=== PATIENT | female | born 1990 | race Caucasian/White ===

== ENCOUNTER 2022-07-26 10:52 | Emergency (ER) | payer OTHER, SELFPAY ==
[2022-07-26 11:22] VITALS: BP 116/77; PULSE 66; RESP 18; TEMP 36.2; O2SAT 98; BMI 27.1
--- NOTE | 2022-07-26 14:12 | ED.GENADULT ---
HPI - General Adult General Chief complaint: Head Injury/Pain Stated complaint: Hit head last night, dizzy Source: patient Mode of arrival: ambulatory Limitations: no limitations History of Present Illness HPI narrative: 32-year-old female coming in today complaining of a headache after hitting her head against the wall at home yesterday. Headache is located all over the left temporal region where she hit her head. She states that she was leaning down picking up baby toys when she went to stand up again she was unaware of where she was relationship to the wall and hit her head against the wall. She did not lose consciousness. She has had no nausea or vomiting. She felt a little foggy this morning continues to have a headache that is localized to the left oriental orthodox where her head was hit but no generalized headache. She denies any neurologic deficits. She denies any slurred speech. She remembers everything before during and after the accident. She is not on any blood thinners. Related Data Home Medications Medication Instructions Recorded Confirmed No Known Home Medications 07/26/22 07/26/22 Allergies Allergy/AdvReac Type Severity Reaction Status Date / Time No Known Drug Allergies Allergy Verified 07/26/22 09:15 Review of Systems Status of ROS: Reports: 10 or more systems reviewed and unremarkable except as noted in History and below [facility] Social History Smoking Status: Never smoker Exam Narrative: Exam Narrative: Well-nourished well-developed patient in no acute distress. Alert and oriented x3. Answers questions appropriately. Mood and affect are appropriate. Thoughts are goal oriented and rational. No tangential or magical thinking noted. Patient speaks in full sentences without needing to catch their breath. Speech is not slurred or pressured. HEENT: Normocephalic atraumatic. Pupils are equally round reactive to light. Extraocular muscles are intact. Conjunctivae are moist without any icterus noted. Moist mucous membranes. Posterior pharynx is normal. Neck is soft without any lymphadenopathy or thyromegaly. No masses are appreciated. TMs are clear bilaterally. There is no swelling, ecchymosis, erythema noted to the area where she hit her head. Cardiovascular: Heart is regular rate and rhythm S1 and S2 are present without any murmurs. Lungs: Clear to auscultation bilaterally no wheezes rhonchi or rales are appreciated. Patient takes deep breaths without any discomfort. Strength is 5/5 of the upper and lower extremities. Reflexes are 2+ and symmetric at the knees. Romberg sign is negative. Cranial nerves 3-12 are normal. There is no nystagmus either horizontally or vertically. Gait is normal. Const: Vital Signs, click to edit/add: Vital Signs - 24 hr 07/26/22 11:22 Temperature 97.2 F L Pulse Rate [Right Brachial] 66 Respiratory Rate 18 Blood Pressure [Ri ght Upper Arm] 116/77 Pulse Oximetry 98 Oxygen Delivery Me thod Room Air Course Vital Signs Vital signs: Initial Vital Signs Temperature 97.2 F L 07/26/22 11:22 Temperature Source Temporal Artery Scan 07/26/22 11:22 Pulse Rate 66 07/26/22 11:22 Respiratory Rate 18 07/26/22 11:22 Blood Pressure 116/77 07/26/22 11:22 Blood Pressure Mean 90 07/26/22 11:22 Blood Pressure Position Sitting 07/26/22 11:22 Pulse Oximetry 98 07/26/22 11:22 Oxygen Delivery Method 07/26/22 11:22 Vital Signs Temperature 97.2 F L 07/26/22 11:22 Pulse Rate 66 07/26/22 11:22 Respiratory Rate 18 07/26/22 11:22 Blood Pressure 116/77 07/26/22 11:22 Pulse Oximetry 98 07/26/22 11:22 Oxygen Delivery Method 07/26/22 11:22 Temperature 97.2 F L 07/26/22 11:22 Pulse Rate 66 07/26/22 11:22 Respiratory Rate 18 07/26/22 11:22 Blood Pressure 116/77 07/26/22 11:22 Pulse Oximetry 98 07/26/22 11:22 Oxygen Delivery Method 07/26/22 11:22 Medical Decision Making MDM Narrative Medical decision making narrative: Close head injury, very mild concussion with remaining headache. We discussed symptomatic treatment, slow return to physical activity. Patient was agreeable had no other questions. Discharge Plan Discharge Clinical Impression: Closed head injury Patient Disposition: Home, Self-Care Condition: Stable Additional Instructions: Recommend resting for 24 hours-this includes no screens are stimulation. Then slow return to regular activity. Recommend ibuprofen as needed for headache, okay to ice the head where it hurts-do not apply ice directly to skin. Follow-up with primary care provider 1 week if you are not improving. Prescriptions: No Action No Known Home Medications Follow Up/Referrals: Provider,Not a Local [Primary Care Provider] - Stand Alone Forms: [employer] Info Instructions
== END 2022-07-26 14:31 | disposition home or self-care (01) ==
LOC: ED2 14:28
PROVIDERS: Emergency Provider Family Medicine
DX: S06.0X0A Concussion without loss of consciousness, initial encounter (principal); W22.8XXA Striking against or struck by other objects, initial encounter; Y92.018 Other place in single-family (private) house as the place of occurrence of the external cause
CPT/HCPCS: 99283; 99284

== ENCOUNTER 2022-08-16 09:58 | Emergency (ER) | payer OTHER, SELFPAY ==
[2022-08-16 10:02] VITALS: BP 131/87; PULSE 68; RESP 18; TEMP 36.5; O2SAT 99; BMI 26.9
--- NOTE | 2022-08-16 10:33 | CRLHL7_ITS ---
For Patients: As a result of the Century Cures Act, medical imaging exams and procedure reports are released immediately into your electronic medical record. You may view this report before your referring provider. If you have questions, please contact your health care provider. INDICATION: INJURY 2 WEEKS AGO. NOW UNABLE TO TURN NECK TECHNIQUE: CT cervical spine without contrast. COMPARISON: None FINDINGS: Vertebrae: No facet malalignment. Patient`s head is rotated to the right. Normal C1-2 relationship. There are no fractures or suspicious bony lesions. Discs and facet joints: Disc spaces and facets are within normal limits. Extraspinal findings: Prevertebral soft tissues, visualized airway, and visualized lungs are unremarkable. IMPRESSION: Rotational deformity related to muscle spasm. No fracture or jumped facet. Please note that all CT scans at this facility use dose modulation, iterative reconstruction, and/or weight-based dosing when appropriate to reduce radiation dose to as low as reasonably achievable. Dictated by Theodore Herrera MD @ 08/16/2022 12:34:04 PM (Electronically Signed)
--- OUTSIDE RECORDS SUMMARY | 2022-08-16 10:44 | XMS_ITS | Encounter Summary ---
:1990 [email or web address] [address] [address] Care Team Providers Name Role Phone Rosaura Ayala PA-C Primary Care Provider Reason for Visit Reason Onset Date Comments RESULTS, BLOOD TEST, NOS 01/04/2011 Encounter Details Date Type Department Care Team Description 01/04/2011 Telephone [facility] Rosaura Ayala, LIV ULTS, BLOOD TEST, Practice [facility] NOS [id number] [facility] [address] [place], [place] [address] [place], [place] [phone] (Wo rk) Social History Tobacco Use Types Packs/Day Years Used Date Smoking Tobacco: Never Alcohol Use Standard Drinks/Week Comments Not Asked 0 (1 standard drink = 0.6 oz pure alcoho l) Sex Assigned at Date Recorded Not on file documented as of this encounter Nursing Notes Rosaura Ayala PA-C - 01/04/2011 5:00 PM CDT Discussed with her that all of the labs back thus far (besides the [facility] and [facility]) are normal. Has appt denis morning with Dr. Barbara Ayala PA-C 01/04/2011, 5:00 PM documented in this encounter Plan of Treatment Not on filedocumented as of this encounter Visit Diagnoses Not on filedocumented in this encounter Care Teams Bi Tester Relationship Specialty Start Date End Date Rosaura Ayala PA-C PCP - General 06/01/10 [id number] [place] [address] documented as of this encounter
--- OUTSIDE RECORDS SUMMARY | 2022-08-16 10:44 | XMS_ITS | Encounter Summary ---
:1990 Author Organization [facility] Address [address], [place] [address] Care Team Providers Name Role Phone Rosaura Ayala PA-C Primary Care Provider Reason for Referral Specialty Diagnoses / Procedures Referred By Contact Refer red To Contact Rosaura Ayala PA -C [address] [place], [place] [address] Referral ID Status Reason Start Date Expiration Date Visits Requ ested Visits Authorized Scheduling Instructions If an appointment with [facility] urology was advised and you have not been contacted to schedule that appointment w ithin 3 business days, please call [phone] for assistance. Reason for Visit Reason Comments WEAKNESS,MUSCLE getting worse WEIGHT LOSS FATIGUE Encounter Details Date Type Department Care Team Description 01/03/2011 Office Visit [place] Rosaura Ayala, Malvin slava weakness (Primary Dx); Practice MEL Fatigue; [address] [facility] [address] [facility] [place] [address] [id number] Social History Tobacco Use Types Packs/Day Years Used Date Smoking Tobacco: Never Alcohol Use Standard Drinks/Week Comments Not Asked 0 (1 standard drink = 0.6 oz pure alcoho l) Sex Assigned at Date Recorded Not on file documented as of this encounter Last Filed Vital Signs Vital Sign Reading Time Taken Comments Blood Pressure 116/60 01/03/2011 8:52 AM CDT Pulse 60 01/03/2011 8:52 AM CDT Temperature 36.3 ??C (97.3 ??F) 01/03/2011 8:52 AM CDT Respiratory Rate 12 01/03/2011 8:52 AM CDT Oxygen Saturation - - Inhaled Oxygen Concentration - - Weight 50.2 kg (110 lb 9.6 oz) 01/03/2011 8:52 AM CDT Height 157.5 cm (5' 2) 01/03/2011 8:52 AM CDT Body Mass Index 20.23 01/03/2011 8:52 AM CDT documented in this encounter Patient Instructions Patient InstructionsPeJolynn ashford LPN - 01/03/2011 8:54 AM CDT Thank you for visiting the [facility]. Should you have any questions or concerns please call my office during business hours at [phone] and leave a message along with a phone number where you can be reached during the day and a member of my care team will contact you. If you need assistance after business hours you can speak with a registered nurse by calling the Careline at [phone]. In addition we provide services after hours at the [facility] at our walk-in Urgent Care. Urgent Care Clinic hours are: Mon-Sun 5:00pm-9:00pm Sunday 9:00am-5:00pm Sunday Noon-5:00 pm To schedule an appointment please call [phone]. documented in this encounter Progress Notes Rosaura Ayala PA-C - 01/03/2011 11:34 AM CDT S: Izzy Wells is a 20 yr female who presents today for evaluation of fatigue and generalized weakness. This has been going on for the past 9 months, getting worse more recently. She has been seen by several chiropractors and physical therapists, as well as a sports activities foul judge provider yesterday. Naturalistsuggested that she have a CARMEN and LDH isoenzyme lab test done. The muscle weakness is all over, but worse in her legs. At times she feels like she can't support herself or that her legs will give out. She can barely lift her 3 year old daughter any more. There have been a couple days were she is so tired and weak she can't even get out of bed. She states she has unintentionally lost about 10 lbs in the past 9 months. Her appetite is pretty good and she has been trying to eat healthy. She denies fevers or night sweats. She denies rashes or sores in her mouth. Occasional non specific abdominal discomfort. No headaches or dizziness. She occasionally with have tingling in her legs. Over the past couple of weeks her right hip has been really bothersome. The physical therapist couldn't seem to help herright hip pain at all. FH is negative for autoimmune disorders. FH positive for melanoma in a grandparent and ovarian cancer in an aunt She is not currently taking any regular medications. Occasionally with use tylenol or ibuprofen for pain. O: BP 116/60 Pulse 60 Temp(Src) 97.3 ??F (36.3 ??C) (Oral) Resp 12 Ht 5' 2 (1.575 m) Wt 110 lb 9.6 oz (50.168 kg) BMI 20.23 kg/m2 Vitals reviewed by me. Neck: supple, no adenopathy present, no masses felt, normal ROM CV: RRR, normal S1/S2, no murmurs or gallops Lungs: clear to auscultation, no wheezing Abd: bowel sounds heard in all 4 quads, soft, no tenderness, no organomegaly Extremities: normal ROM in upper and lower. She has normal ROM of her right hip. no lesions or masses Neuro: Gait is steady, normal heel to toe walking, negative rhomberg, CN II-XII intact, patellar reflexes 2+. Director Fraud strength is equally bilaterally, but does seem decreased. A: Muscle weakness fatigue P: 1) I am really not sure what to make of her symptoms. Certainly starting with some lab work is necessary. I don't think continuing with physical therapy or the chiropractors is going to make any difference at this point. I think she should be seen by neurology for further evaluation and to determine whether a brain MRI or EMGs may be needed. Pt agrees with above plan. I will contact her with lab results, order placed for urgent neuro evaluation. Rosaura Ayala PA-C 01/03/2011, 4:55 PM documented in this encounter Plan of Treatment Scheduled Referrals Name Type Priority Associated Diagnoses Order S chedule NEUROLOGY CONSULT-ADULTS Referral Routine Muscle weakness Ordered: 01/03/2011 documented as of this encounter Procedures Procedure Name Priority Date/Time Associated Comments Diagnosis ECG 12-LEAD ROUTINE Routine 01/03/2011 9:43 AM Muscle weakness Results for this CDT procedure are i n the results section. VITAMIN D 25-HYDROXY, Routine 01/03/2011 9:27 AM Muscle weakne ss Results for this TOTAL CDT procedure are i n the results section. COMPLETE BLOOD Routine 01/03/2011 9:27 AM Muscle weakness Resu lts for this COUNT-W/DIFF CDT procedure are i n the results section. LIVER PANEL(HEPATIC Routine 01/03/2011 9:27 AM Muscle weakness Results for this FUNCTION PANEL) CDT procedure ar e in the results section. BASIC METABOLIC PANEL Routine 01/03/2011 9:27 AM Muscle weakne ss Results for this CDT procedure are i n the results section. VIT B12 & FOLATE Routine 01/03/2011 9:27 AM Muscle weakness Re sults for this CDT procedure are i n the results section. LYME ANTIBODY (REFLEX Routine 01/03/2011 9:27 AM Muscle weakne ss Results for this TO LYME CONFIRMATORY CDT procedu re are in PANEL) the results section. LD ISOENZYMES Routine 01/03/2011 9:27 AM Muscle weakness Resul ts for this CDT procedure are i n the results section. FERRITIN Routine 01/03/2011 9:27 AM Muscle weakness Result s for this CDT procedure are i n the results section. C4 COMPLEMENT Routine 01/03/2011 9:27 AM Muscle weakness Resul ts for this CDT procedure are i n the results section. C3 COMPLEMENT Routine 01/03/2011 9:27 AM Muscle weakness Resul ts for this CDT procedure are i n the results section. HIV ANTIBODY Routine 01/03/2011 9:27 AM Muscle weakness Result s for this CDT procedure are i n the results section. RPR (SYPHILIS SCREEN) Routine 01/03/2011 9:27 AM Muscle weakne ss Results for this CDT procedure are i n the results section. C-REACTIVE PROTEIN Routine 01/03/2011 9:27 AM Muscle weakness Results for this CDT procedure are i n the results section. CARMEN SCREEN Routine 01/03/2011 9:27 AM Muscle weakness Result s for this CDT procedure are i n the results section. TSH, SENSITIVE (WITH Routine 01/03/2011 9:27 AM Muscle weaknes s Results for this REFLEX) CDT procedure are i n the results section. IRON PROFILE Routine 01/03/2011 9:27 AM Muscle weakness Result s for this (IRON,TIBC,%SAT.(CALC CDT proced ure are in )) the results section. CK, TOTAL Routine 01/03/2011 9:27 AM Muscle weakness Result s for this CDT procedure are i n the results section. ESR Routine 01/03/2011 9:27 AM Muscle weakness Result s for this CDT procedure are i n the results section. documented in this encounter Results ECG 12-LEAD ROUTINE (01/03/2011 9:43 AM CDT) P athologist Signature Ventricular Rate 59 BPM MUSE Atrial Rate 59 BPM MUSE P-R Interval 132 ms MUSE QRS Duration 78 ms MUSE QT 426 ms MUSE QTc 421 ms MUSE P Tracy 74 degrees MUSE R Tracy 84 degrees MUSE T Tracy 34 degrees MUSE Specimen (Source) Anatomical Collection Method Collection Time Re ceived Time Location / / Volume Laterality 01/03/2011 9:43 AM CDT Narrative MUSE - 01/09/2011 8:51 AM CDT Sinus bradycardia with sinus arrhythmia Otherwise normal ECG No previous ECGs available Procedure Note Alberto Nayak W - 01/09/2011 Sinus bradycardia with sinus arrhythmia Otherwise normal ECG No previous ECGs available Rosaura Ayala PA-C EKG Performing Organization Address City/State/ZIP Code Phon e Number MUSE RHP MUSE C4 COMPLEMENT (01/03/2011 9:27 AM CDT) P athologist Signature C4 Complement 21 14 - 44 [facility] mg/dl Specimen Anatomical Collection Method Collection Time Receive d Time (Source) Location / / Volume Laterality 01/03/2011 9:27 AM 1 9:40 CDT AM CDT Rosaura Ayala PA-C LAB_1 Performing Organization Address City/State/ZIP Code Phon e Number [place] [phone] [facility] [address] [place] [phone] C3 COMPLEMENT (01/03/2011 9:27 AM CDT) athologist Signature C3 Complement 132 88 - 165 [facility] mg/dl Specimen Anatomical Collection Method Collection Time Receive d Time (Source) Location / / Volume Laterality 01/03/2011 9:27 AM 9:40 CDT AM CDT Rosaura Ayala PA-C LAB_1 Performing Organization Address City/[facility] Phon e Number [place] [phone] [phone] HIV ANTIBODY (01/03/2011 9:27 AM CDT) [facility] Method Time Signature HIV 1/2 Negative NEGNR [facility] Antibody (Non Reactive) Comment: HIV Antibody testing may be falsely nega tive during the window period. If the patient has had recent exposure (within the past four weeks), consider contacting Infectious Diseases for clarification. Specimen Anatomical Collection Method Collection Time Receive d Time (Source) Location / / Volume Laterality 01/03/2011 9:27 AM 9:40 CDT AM CDT Rosaura Ayala PA-C LAB_1 Performing Organization Address City/[facility]/ZIP [facility] Phon e Number [facility] [phone] [facility] [address] [place] [phone] VITAMIN D 25-HYDROXY, TOTAL (V77.99) (01/03/2011 9:27 AM CDT) athologist Signature Vitamin 34.6 30 - 80 [facility] D,25-OH, Tot ng/mL Comment: Deficiency: ??< 20 ng/mL Insufficiency: ??20-29 ng/mL Optimum Level: ??30-80 ng/mL Possible Toxicity: > 80 ng/mL Performed at [facility] Specimen Anatomical Collection Method Collection Time Receive d Time (Source) Location / / Volume Laterality 01/03/2011 9:27 AM 1 9:40 CDT AM CDT Rosaura Ayala PA-C LAB_1 Performing Organization Address [facility] Phon e Number [place] [phone] [facility] [address] [phone] VIT B12 & FOLATE (01/03/2011 9:27 AM CDT) P athologist Signature Vitamin B12 405 239 - 931 [facility] pg/ml Folate 6.3 >3.0 ng/ml [facility] Specimen Anatomical Collection Method Collection Time Receive d Time (Source) Location / / Volume Laterality 01/03/2011 9:27 AM 9:40 CDT AM CDT Rosaura Ayala PA-C LAB_1 Performing Organization Address [facility] Phon e Number [place] [phone] [phone] FERRITIN (01/03/2011 9:27 AM CDT) P athologist Signature Ferritin 15 10 - 120 [facility] ng/ml Specimen Anatomical Collection Method Collection Time Receive d Time (Source) Location / / Volume Laterality 01/03/2011 9:27 AM 1 9:40 CDT AM CDT Rosaura Ayala PA-C LAB_1 Performing Organization Address [facility] Phon e Number [facility] [phone] [facility] [address] [place] [phone] (ABNORMAL) IRON PROFILE (IRON,TIBC,%SAT.(CALC)) (01/03/2011 9:27 AM CDT) Analysis Performed At Patho logist Time Signature Iron 53 37 - 170 [facility] mcg/dl TIBC 429 240 - 430 [facility] mcg/dl % Saturation, 12 (L) 15 - 50 % [facility] calc. Specimen Anatomical Collection Method Collection Time Receive d Time (Source) Location / / Volume Laterality 01/03/2011 9:27 AM 1 9:40 CDT AM CDT Rosaura Ayala PA-C LAB_1 Performing Organization Address [facility] Phon e Number [facility] [phone] [facility] [address] [place] [phone] RPR (SYPHILIS SCREEN) (01/03/2011 9:27 AM CDT) [facility] Method Time Signature Syphilis Non-React NR [facility] Screen(RPR) suki Specimen Anatomical Collection Method Collection Time Receive d Time (Source) Location / / Volume Laterality 01/03/2011 9:27 AM 1 9:40 CDT AM CDT Rosaura Ayala PA-C LAB_1 Performing Organization Address [facility] Phon e Number [place] [phone] [phone] LYME ANTIBODY (01/03/2011 9:27 AM CDT) athologist Signature Lyme Antibody 0.15 0 - 0.74 [facility] OD Ratio Comment: Negative Specimen Anatomical Collection Method Collection Time Receive d Time (Source) Location / / Volume Laterality 01/03/2011 9:27 AM 1 9:40 CDT AM CDT Rosaura Ayala PA-C LAB_1 Performing Organization Address [facility] Phon e Number [facility] [phone] [phone] LIVER PANEL(HEPATIC FUNCTION PANEL) (01/03/2011 9:27 AM CDT) [facility] gist Method Time Signature Alkaline 72 38 - 126 [facility] Phosphatase U/L Bilirubin, Total 0.6 0.2 - 1.3 [facility] mg/dl Bilirubin, 0.0 0.0 - 0.3 [facility] Direct mg/dl ALT (SGPT) 34 0 - 69 U/L [facility] AST (SGOT) 29 0 - 55 U/L [facility] Protein, Total 7.3 6.3 - 8.2 [facility] g/dl Albumin 4.5 3.5 - 5.0 [facility] g/dl A/G Ratio, calc. 1.6 >1.0 [facility] Specimen Anatomical Collection Method Collection Time Receive d Time (Source) Location / / Volume Laterality 01/03/2011 9:27 AM 1 9:40 CDT AM CDT Rosaura Ayala PA-C LAB_1 Performing Organization Address City/State/ZIP Code Phon e Number [facility] [phone] [facility] [address] [phone] (ABNORMAL) HEMOGRAM/PLTS/DIFF (01/03/2011 9:27 AM CDT) [facility] gist Method Time Signature WBC 4.2 4.0 - [facility] 11.0 k/ul RBC 5.35 (H) 4.0 - 5.2 [facility] M/ul Hemoglobin 15.1 12.0 - [facility] 16.0 g/dl HCT 46.0 36.0 - [facility] 46.0 % MCV 86.1 80 - 100 [facility] fl MCH 28.3 26 - 34 [facility] pg MCHC 32.8 32 - 36 [facility] g/dl RDW 13.8 11.5 - [facility] 14.5 % Platelets 261 150 - 450 [facility] k/ul PMN/Band 60 43 - 72 % [facility] Lymph 34 17 - 43 % [facility] Mcclain 4 4 - 12 % [facility] Eos 1 0 - 8 % [facility] Baso 1 0 - 1 % [facility] Neutrophil 2.5 1.8 - 7.7 [facility] Absolute k/ul Lymph Absolute 1.5 1.0 - 4.8 [facility] k/ul Mcclain Absolute 0.2 0.1 - 0.7 [facility] k/ul Eos Absolute 0.1 0.0 - 0.5 [facility] k/ul Baso Absolute 0.0 0.0 - 0.2 [facility] k/ul Specimen Anatomical Collection Method Collection Time Receive d Time (Source) Location / / Volume Laterality 01/03/2011 9:27 AM 1 9:40 CDT AM CDT Rosaura Ayala PA-C LAB_1 Performing Organization Address [facility] Phon e Number [place] [phone] [facility] [address] [place] [phone] C-REACTIVE PROTEIN (01/03/2011 9:27 AM CDT) athologist Signature C-Reactive <0.5 0.0 - 0.9 [facility] Protein mg/dl Comment: Note: results are expressed in mg/dL. Specimen Anatomical Collection Method Collection Time Receive d Time (Source) Location / / Volume Laterality 01/03/2011 9:27 AM 1 9:40 CDT AM CDT Rosaura Ayala PA-C LAB_1 Performing Organization Address [facility] Phon e Number [place] [phone] [facility] [address] [place] [phone] ESR (01/03/2011 9:27 AM CDT) athologist Signature ESR 4 0 - 20 [facility] mm/hr Specimen Anatomical Collection Method Collection Time Receive d Time (Source) Location / / Volume Laterality 01/03/2011 9:27 AM 1 9:40 CDT AM CDT Rosaura Ayala PA-C LAB_1 Performing Organization Address [facility] Phon e Number [place] [phone] [facility] [address] [place] [phone] BASIC METABOLIC PANEL (01/03/2011 9:27 AM CDT) Analysis Performed At Patho logist Time Signature BUN 11 7 - 20 [facility] mg/dl Sodium 142 135 - 145 [facility] mmol/L Potassium 4.8 3.5 - 5.3 [facility] mmol/L Chloride 106 95 - 106 [facility] mmol/L CO2 27 22 - 30 [facility] mmol/L Glucose 85 70 - 180 [facility] mg/dl Creatinine 0.73 0.52 - [facility] 1.04 mg/dl GFR, Estimated >60.0 >60 [facility] ml/min/1.7 3m2 GFR, Est., If >60.0 >60 [facility] Black ml/min/1.7 3m2 Calcium 9.4 8.4 - 10.2 [facility] mg/dl Anion Gap 9 7 - 16 [facility] (calc.) mmol/L Specimen Anatomical Collection Method Collection Time Receive d Time (Source) Location / / Volume Laterality 01/03/2011 9:27 AM 1 9:40 CDT AM CDT Rosaura Ayala PA-C LAB_1 Performing Organization Address City/[facility] Phon e Number [place] [phone] [phone] TSH, SENSITIVE (WITH REFLEX) [0191] (01/03/2011 9:27 AM CDT) athologist Signature TSH, with 3.676 0.300 - [facility] Reflex 5.00 uIU/ml Specimen Anatomical Collection Method Collection Time Receive d Time (Source) Location / / Volume Laterality 01/03/2011 9:27 AM 1 9:40 CDT AM CDT Rosaura Ayala PA-C LAB_1 Performing Organization Address City/[facility] Phon e Number [place] [phone] [phone] CK, TOTAL (01/03/2011 9:27 AM CDT) P athologist Signature CK, Total 47 0 - 135 U/L [facility] Specimen Anatomical Collection Method Collection Time Receive d Time (Source) Location / / Volume Laterality 01/03/2011 9:27 AM 1 9:40 CDT AM CDT Rosaura Ayala PA-C LAB_1 Performing Organization Address City/State/ZIP Code Phon e Number [facility] [phone] [facility] [address] [place] [phone] (ABNORMAL) LD ISOENZYMES (01/03/2011 9:27 AM CDT) athologist Signature LD,Serum 158 U/L [facility] Comment: Reference range: 100 to 200 LD,Serum (NOTE) [facility] Test performed at [facility] [address] [place], [place] ??[phone] Director: MAT CHEN MD PHD LD1 29 % [facility] Comment: Reference range: 19 to 38 LD 2 29 (L) % [facility] Comment: Reference range: 30 to 43 LD 3 22 % [facility] Comment: Reference range: 16 to 26 LD 4 9 % [facility] Comment: Reference range: 3 to 12 LD 5 11 % [facility] Comment: Reference range: 3 to 14 LD 5 (NOTE) [facility] Interpretation of Most LD Isoenzyme Results Condition ?LD Isoenzyme ? Increased AMI ?1 and 2 Acute renal cortical infarction ? 1 and 2 Pernicious anemia ?1 Sickle cell crisis ? 1 and 2 Electrical and thermal burn, trauma ? 5 Mother carrying erythro- blastotic child ?4 and 5 AMI with acute congestion of liver ?1 and 5 Early hepatitis ?5 (may become normal ?even when SGPT is ?still rising) Malignant lymphoma ? 3 and 4 (may even in- ?crease 2) (reflect s ?effect of chemo- ?therapy) SLE ?3 and 4 Dermatomyositis ?5 Carcinoma of prostate ?5 Pulmonary embolus and infarction ? 2 and 3 Pulmonary embolus with acute cor pulmonale causing acute congestion of liver ?3 and 5 Test performed at [facility] [address] [place], [place] ??[phone] Director: MAT CHEN MD PHD Specimen Anatomical Collection Method Collection Time Receive d Time (Source) Location / / Volume Laterality 01/03/2011 9:27 AM 1 9:40 CDT AM CDT Rosaura Ayala PA-C LAB_1 Performing Organization Address City/State/ZIP Code Phon e Number [facility] [phone] [facility] [address] [place] [phone] CARMEN SCREEN (01/03/2011 9:27 AM CDT) [facility] Method Time Signature CARMEN Screen NEGATIVE [facility] Reference range: NEGATIVE CARMEN Screen (NOTE) [facility] Test performed at [facility] [employer] [facility] [address] ??[phone] Director: YONI CHANG MD Specimen Anatomical Collection Method Collection Time Receive d Time (Source) Location / / Volume Laterality 01/03/2011 9:27 AM 1 9:40 CDT AM CDT Rosaura Ayala PA-C LAB_1 Performing Organization Address City/State/[facility] Code Phon e Number [facility] [phone] [facility] [address] [phone] documented in this encounter Visit Diagnoses Diagnosis Muscle weakness - Primary Muscle weakness (generalized) Fatigue Other malaise and fatigue Right hip pain Pain in joint, pelvic region and thigh documented in this encounter Care Teams Potato Chip Sorter Relationship Specialty Start Date End Date Rosaura Ayala PA-C PCP - General 06/01/10 [address] [place] [address] documented as of this encounter
--- OUTSIDE RECORDS SUMMARY | 2022-08-16 10:44 | XMS_ITS | Encounter Summary ---
:1990 Author Organization [facility] Address [address] [place] [address] Care Team Providers Name Role Phone Rosaura Ayala PA-C Primary Care Provider Reason for Visit Reason Comments Follow-up, NOS Encounter Details Date Type Department Care Team Description 01/06/2011 Office Visit [facility] LucyRosaura, Hip pain (Primary Dx); Practice MEL Leg weakness; [address] [place] [address] [phone] Social History Tobacco Use Types Packs/Day Years Used Date Smoking Tobacco: Never Smokeless Tobacco: Never Alcohol Use Standard Drinks/Week Comments Yes 0 (1 standard drink = 0.6 oz pure alcoho l) rare use Sex Assigned at Date Recorded Not on file documented as of this encounter Last Filed Vital Signs Vital Sign Reading Time Taken Comments Blood Pressure 115/78 01/06/2011 9:58 AM CDT Pulse 56 01/06/2011 9:58 AM CDT Temperature 36.5 ??C (97.7 ??F) 01/06/2011 9:58 AM CDT Respiratory Rate 12 01/06/2011 9:58 AM CDT Oxygen Saturation - - Inhaled Oxygen Concentration - - Weight - - Height - - Body Mass Index - - documented in this encounter Patient Instructions Patient InstructionsPeJolynn ashford LPN - 01/06/2011 9:59 AM CDT Thank you for visiting the [facility]. Should you have any questions or concerns please call my office during business hours at [phone] and leave a message along with a phone number where you can be reached during the day and a member of my care team will contact you. If you need assistance after business hours you can speak with a registered nurse by calling the Careline at [phone]. In addition we provide services after hours at the [facility] at our walk-in Urgent Care. Urgent Care Clinic hours are: Sun-Sun 5:00pm-9:00pm Sunday 9:00am-5:00pm Sunday Noon-5:00 pm To schedule an appointment please call [phone]. documented in this encounter Progress Notes Rosaura Ayala PA-C - 01/07/2011 3:20 PM CDT S: Izzy Wells is a 20 yr female who presents today for follow up of our visit from earlier this week. She continues to have the same symptoms, no real change. Generalized weakness and fatigue. Worse in her legs, particularly her right leg. She has been having some right hip pain, but the pain does seem to go down her entire leg as well. Occasionally there will be numbness in the right leg. She right leg pain varies with intensity throughout the day, but she can't identify any particular trigger that makes it worse. Yesterday she was just sitting and developed severe, stabbing pain in her right leg. She saw neurology yesterday, EMG evaluation of her right arm and leg were recommended. She has thosescheduled in 2 weeks. Her neurologic history and examination were completely normal. She was recommended she begin a progressive exercise program. She is somewhat frustrated with these recommendations as she feels she has already tried the exercise program, both on her own and with more recently with the help of a physical therapist. She has had lab work done, all has been normal, asides for the LDH isoenzyme which is still pending. O: BP 115/78 Pulse 56 Temp(Src) 97.7 ??F (36.5 ??C) (Oral) Resp 12 LMP 12/05/2010 Vitals reviewed by me. Right hip: she has generalized tenderness over her hip and anterior thigh region. I don't feel her tenderness is confined to the trochanter area. She has totally normal ROM Of her hip and normal strength. XR R hip: normal A: Generalized muscle weakness Right hip pain Fatigue P: 1) EMGs in 2 weeks. 2) Due to her pain I want to try her on Neurontin and see if that helps at all. Will start her out at a really low dose, 100mg TID. Discussed possible side effects. She can continue ibuprofen or naproxen as well. 3) We will be in touch to follow up on the medications and EMG results. Rosaura Ayala PA-C 01/07/2011, 3:20 PM' documented in this encounter Plan of Treatment Not on filedocumented as of this encounter Results XR HIP ROUTINE RIGHT (INCLUDES PELVIS) (01/06/2011 10:29 AM CDT) Anatomical Region Laterality Modality Pelvis, Hip Computed Radiography Specimen (Source) Anatomical Collection Method Collection Time Re ceived Time Location / / Volume Laterality 01/06/2011 10:29 AM CDT Narrative 01/06/2011 11:10 AM CDT AP PELVIS RIGHT HIP 2 VIEW 01/06/2011 INDICATION: Pain. FINDINGS: No pelvic or proximal femur fr acture. No additional abnormality. Procedure Note Markell Cohen MD - 01/06/2011Format ting of this note might be different from the original. AP PELVIS RIGHT HIP 2 VIEW 01/06/2011 INDICATION: Pain. FINDINGS: No pelvic or proximal femur fr acture. No additional abnormality. Rosaura Ayala PA-C RAD GD documented in this encounter Visit Diagnoses Diagnosis Hip pain - Primary Pain in joint, pelvic region and thigh Leg weakness Other musculoskeletal symptoms referable to limbs Fatigue Other malaise and fatigue Hip pain Pain in joint, pelvic region and thigh documented in this encounter Care Teams Extension Forester Relationship Specialty Start Date End Date Rosaura Ayala PA-C PCP - General 06/01/10 [address] [place] [address] documented as of this encounter
--- OUTSIDE RECORDS SUMMARY | 2022-08-16 10:44 | XMS_ITS | Encounter Summary ---
:1990 Author Organization [facility] Address [address], [place] [address] Care Team Providers Name Role Phone Rosaura Ayala PA-C Primary Care Provider Reason for Visit Reason Comments Dental Hygiene no cc Encounter Details Date Type Department Care Team Description 06/03/2018 Office Visit [place] [facility] Dental Hygiene (no Dentistry [address] [facility] cc) [address] [place] [address] Social History Tobacco Use Types Packs/Day Years Used Date Smoking Tobacco: Never Smokeless Tobacco: Never Alcohol Use Standard Drinks/Week Comments Yes 0 (1 standard drink = 0.6 oz pure alcoho l) rare use Sex Assigned at Date Recorded Not on file documented as of this encounter Last Filed Vital Signs Vital Sign Reading Time Taken Comments Blood Pressure 102/63 06/03/2018 7:18 AM CDT Pulse 59 06/03/2018 7:18 AM CDT Temperature - - Respiratory Rate - - Oxygen Saturation - - Inhaled Oxygen Concentration - - Weight - - Height - - Body Mass Index - - documented in this encounter Patient Instructions Patient Jhoana Fernandez - 06/03/2018 7:10 AM CDT Your next hygiene recall is due 06/03/2019 PERSONAL DENTAL RISK REPORT FOR IZZY FARAH Caries (Tooth Decay) Risk Periodontal (Gum Disease) Risk Oral Cancer Risk Your Risk Level Low High Moderate Low X This exam Your Risk Level Low High Moderate Low X This exam Your Risk Level Low Elevated Low X This exam Your Risk Factors How To Reduce Your Risk Hygiene recall 12 to 18 months Instruction on brushing; flossing; and use of oral hygiene products Your Risk Factors How To Reduce Your Risk Return visit with the dental hygienist at 12 month intervals Your Risk Factors How To Reduce Your Risk CONGRATULATIONS. The results of your dental risk assessment indicate you are at low risk for tooth decay. Making healthy life style choices including brushing twice a day; daily flossing and healthy dietary choices should help you maintain this low risk. CONGRATULATIONS. The results of your dental risk assessment indicate you are at low risk for gum disease. Making healthy life style choices including brushing twice a day; daily flossing and not using tobacco should help you maintain this low risk. CONGRATULATIONS. The results of your dental risk assessment indicate you are at low risk for oral cancer. Making healthy life style choices such as not using tobacco and low to moderate alcohol use should help you maintain this low risk. Izzy, we look forward to seeing you at your next visit! Thank you for choosing [facility]. documented in this encounter Progress Notes Crys Mercer, DDS - 06/03/2018 7:10 AM CDT NEW PATIENT EXAM NOTE Izzy was seen today for Dental Hygiene (no cc) Chart review Reviewed health history, dental history, periodontal charting and radiographs with the patient. Soft tissue, head and neck examination Lips: normal Tongue: normal Palate: normal maxillary becky Throat: normal Floor of the mouth: normal Mucosa: normal bilateral linea alba Head and neck: normal TMD evaluation Palpation pain: none Joint sounds: none Pain with range of motion: none Occlusal examination Angle relationship: Right molar: class I Right cuspid: class I Left molar: class II Left cuspid:class II Maxillary midline: within normal limits Mandibular midline: within normal limits Overbite: 5 Overjet: 3 Crossbite: none Space loss: none Crowding: not evident Occlusion: all teeth Attrition: normal Erosion: absent Overall occlusal relationship: stable Cosmetic concerns Patient's perception was acceptable Dentist???s perception was acceptable Treatment review and follow-up Dental findings were described to the patient and they expressed understanding. Treatment options and prognosis were discussed. All questions were answered and informed consent was obtained. Recommended Recall Examination recommended in 12 months Recall prophy recommended in 12 months Planned Recall Examination planned in 12 months Recall prophy planned in 12 months Next visit Next planned visit is 12 mo recall Monitor wisdom teeth adv taking Begum every 5 yrs and discussed decal on the F of molars. Crys Mercer DDS 06/03/2018, 7:59 AM --End of Note-- Jhoana Wiklinson - 06/03/2018 7:10 AM CDT HYGIENE PROPHY NOTE Collaborative agreement Patient consents to have charting, radiographs and prophylaxis by the dental hygienist performed with the understanding that this care is not a substitute for examination by a dentist. Presentation Oral Hygiene: normal Plaque: localized; light; supra-gingival Calculus:localized; light; mandibular anterior Stain: none Bleeding: localized; light Gingival tissue: normal Mucogingival concerns: absent Activities Treatment included OHI, hand scale, essential selective polishing and flossed all contacts. Patient Education Discussion topics included caries risk assessment, fluoride rinse, OHI, oral cancer risk and periodontal risk. REMINERALIZATION COUNSELING Patient's readiness for change is contemplator Caries risk factors of recent or active caries to be addressed Patient has been compliant with previous recommendations to address caries risk. The dental professional reviewed remineralization and oral hygiene with the patient. Today's activities included otc fluoride. Follow up plan is 12 months recall Next planned recall visit is hygiene prophy. Jhoana Wilkinson 06/03/2018, 8:05 AM Completed dental procedures in this visit There are no completed dental procedures in this visit. --End of Note-- documented in this encounter Plan of Treatment Scheduled Orders Name Type Priority Associated Order Schedule Diagnoses PROPHYLAXIS-ADULT Dental Procedures Routine 1 Occ urrences RECALL starting 2019 PERIODIC ORAL Dental Procedures Routine 1 Occurre nces EVALUATION starting 2019 documented as of this encounter Procedures Procedure Name Priority Date/Time Associated Diagnosis Comme nts FILM-PANORAMIC Routine 06/03/2018 8:07 AM Routine health CDT maintenance [id number] Routine 06/03/2018 8:07 AM Routine health CDT maintenance COMPREHENSIVE ORAL Routine 06/03/2018 8:07 AM Routine health EVALUATION CDT maintenance PROPHYLAXIS-ADULT RECALL Routine 06/03/2018 8:07 AM Routine he alth CDT maintenance 2 O EXISTING SEALANT E1 Routine 06/03/2018 7:34 AM CDT 19 O EXISTING SEALANT E1 Routine 06/03/2018 7:34 AM CDT documented in this encounter Visit Diagnoses Diagnosis Routine health maintenance - Primary Routine general medical examination at a health care facility documented in this encounter Care Teams Erp Developer Relationship Specialty Start Date End Date Rosaura Ayala PA-C PCP - General 06/01/10 [address] [place] [address] documented as of this encounter
--- OUTSIDE RECORDS SUMMARY | 2022-08-16 10:44 | XMS_ITS | Encounter Summary ---
:1990 Author Organization [facility] Address [address] [address] Care Team Providers Name Role Phone Rosaura Ayala PA-C Primary Care Provider Encounter Details Date Type Department Care Team Description 01/06/2011 Imaging [facility] Radiology Hip pain [address] [place], [place] [address] Social History Tobacco Use Types Packs/Day Years Used Date Smoking Tobacco: Never Smokeless Tobacco: Never Alcohol Use Standard Drinks/Week Comments Yes 0 (1 standard drink = 0.6 oz pure alcoho l) rare use Sex Assigned at Date Recorded Not on file documented as of this encounter Plan of Treatment Not on filedocumented as of this encounter Procedures Procedure Name Priority Date/Time Associated Diagnosis Comme nts XR PELVIS AP W Routine 01/06/2011 10:29 AM Hip pain Result s for this AP/LAT HIP RT CDT procedure are in the results section. documented in this encounter Results XR HIP ROUTINE RIGHT [...] this encounter Visit Diagnoses Diagnosis Hip pain Pain in joint, pelvic region and thigh documented in this encounter Care Teams Refund Specialist Relationship Specialty Start Date End Date Rosaura Ayala PA-C PCP - General 06/01/10 [address] [place] [address] documented as of this encounter
--- OUTSIDE RECORDS SUMMARY | 2022-08-16 10:44 | XMS_ITS | Encounter Summary ---
:1990 Author Organization [facility] Address [address], [place] [address] Care Team Providers Name Role Phone Rosaura Ayala PA-C Primary Care Provider Encounter Details Date Type Department Care Team Description 1990 PN Conversion Only RESTAURANT OPERATIONS MANAGER [address] Bruno Lujan MD [address] [place] [address] [place] [address] Social History Tobacco Use Types Packs/Day Years Used Date Smoking Tobacco: Never Assessed Sex Assigned at Date Recorded Not on file documented as of this encounter Plan of Treatment Not on filedocumented as of this encounter Visit Diagnoses Not on filedocumented in this encounter Care Teams Auger Operator Relationship Specialty Start Date End Date Rosaura Ayala PA-C PCP - General 06/01/10 [address] [place] [address] documented as of this encounter
--- OUTSIDE RECORDS SUMMARY | 2022-08-16 10:44 | XMS_ITS | Encounter Summary ---
:1990 Author Organization [facility] Address [address], [place] [address] Care Team Providers Name Role Phone Rosaura Ayala PA-C Primary Care Provider Reason for Referral Specialty Diagnoses / Procedures Referred By Contact Refer red To Contact Isaiah Vizcarra MD [address] [place] [address] Referral ID Status Reason Start Date Expiration Date Visits Requ ested Visits Authorized Scheduling Instructions Scheduling Instructions (EMG): If an peggy ointment with [facility] Neurology was advised and you have not been contacted within 3 business days, please call [phone] [facility] or [phone] at the [facility] for assistance. Do not apply any lotions or oils to your skin prior to this visit. EMG appointments can take up to two hours. Reason for Visit Reason Comments WEAKNESS unable to lift items, PAIN, NOS hips and legs Encounter Details Date Type Department Care Team Description 01/05/2011 Office Visit [facility] Isaiah Vizcarra, Muscle weakness (Primary Dx) ; [address] [place] Hip pain [place], [place] [address] Social History Tobacco Use Types Packs/Day Years Used Date Smoking Tobacco: Never Smokeless Tobacco: Never Alcohol Use Standard Drinks/Week Comments Yes 0 (1 standard drink = 0.6 oz pure alcoho l) rare use Sex Assigned at Date Recorded Not on file documented as of this encounter Last Filed Vital Signs Vital Sign Reading Time Taken Comments Blood Pressure 100/66 01/05/2011 9:21 AM CDT Pulse 64 01/05/2011 9:21 AM CDT Temperature - - Respiratory Rate - - Oxygen Saturation - - Inhaled Oxygen Concentration - - Weight 49.9 kg (110 lb) 01/05/2011 9:21 AM CDT Height 158.1 cm (5' 2.25) 01/05/2011 9:21 AM CDT Body Mass Index 19.96 01/05/2011 9:21 AM CDT documented in this encounter Patient Instructions Patient InstructionsIsaiah Vizcarra - 01/05/2011 10:04 AM CDT Schedule EMG Isaiah Vizcarra MD documented in this encounter Progress Notes Isaiah Vizcarra - 01/05/2011 10:16 AM CDT Izzy Wells is a 20 yr old right-handed young woman kindly referred for consultation by MELONY Braun because of muscle weakness and decreased endurance that's been gradually worsening for almost 9 months. The patient says that she is having difficulty lifting things at home and at work. 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 Finds that her arms were shaking and she has to put things down quickly. She feels that her legs are weak, has trouble going up and down stairs. No falling. Weakness is consistent, and does not fluctuate through the day. No ptosis, diplopia, trouble chewing or swallowing, shortness of breath. Has also noticed tenderness and pain over the hips. Trouble lying on her sides at night. Some night sweats, no definite fevers. Has noticed rashes when tanning; this is new for her. No other skin rashes, no dysphagia. Jxea-[id number] analgesics not very helpful.Denies drug, alcohol or caffeine use. She saw her primary care and had a number of normal blood studies including: CBC, metabolic profile,TSH, C-reactive protein, CARMEN screen, HIV screen, RPR screen, Lyme antibody, B12 and vitamin D levels, liver function studies, CK levels a sedimentation rate 4. LDH isoenzymes pending. Denies history of previous similar symptoms. No h/o significant head trauma, WHARF TALLY CLERK infections, seizures, LOC, prior LP, CVA/TIA symptoms. Vision, hearing, chewing, swallowing, smell/taste, coordination, balance, sensation and bladder control are normal. No current outpatient prescriptions on file. No Known Allergies Family History Problem Relation Age of Onset ??? Thyroid Disorder Mother Family history: Diabetes, hyperlipidemia, migraine, stroke, seizures. 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 No tobacco, alcohol or caffeine. 3-year-old daughter. In a committed relationship. Systems review: Miscarriage 3 months ago. 1 normal and delivery previously. No history of diabetes, asthma or pulmonary problems, gastrointestinal or genitourinary concerns, ASS[employer]ATE [employer]ICE concerns, hepatitis or jaundice, nephritis or blood in the urine. No history of pleurisy or pericarditis. No history of nephritis or kidney stones. Has lost about 15 pounds in weight over the past year. Rest attend part systems review negative. Examination: Neatly casually dressed, alert, cooperative, very slender young woman. Good recall of medical history, logical flow of thought, speech functions normal, no right left confusion or sensory extinction. Follows simple directions quickly and accurately. Cranial Nerves: Pupils, optic fundi, color vision, visual aviles, Eye movements, facial movements and sensation, tongue, palate, swallow normal. Motor: Normal muscle bulk and strength throughout the arms and legs. Can rise on heels and toes. Marcella 10 partial knee bends on each leg. No muscle atrophy or fasciculations. Tendon reflexes 1+ and equal throughout. Plantar responses downgoing, no clonus or movement disorder. Sensation: Intact in all extremities. Cerebellar: finger to nose and heel to farley nromal. Romberg negaitve. Normal gait. Radial and pedalpulses normal. No edema or trophic changes over the feet. Normal habitus and spinal curvatures. Straight leg raising full and pain free. Hip rotation full andpain free. Tender over the trochanteric bursae. Impression: Muscle weakness of uncertain etiology; trochanteric bursitis; weight loss Comment: The patient's neurologic history and examination are normal except for findings suggesting trochanteric bursitis. I cannot reproduce her weakness here. The absence of bulbar symptoms such as diplopia, etc. and the absence of a fluctuating type of weakness are much against myasthenia gravis. There is no rash to suggest polymyositis center muscles are not partic ularly tender. The normal CK levels and other screenings would tent to r/o myositis. All of this is explained in detail to the patient. We'll do an EMG for completeness but assuming this is normal I would reassure the patient and have her begin a progressive exercise program. I suggested the possibility of cortisone infiltration of the trochanteric bursae and she will consider this. 60 minutes were spent with the patient, 35 minutes in counseling and care coordination. I appreciate the opportunity of participating in the patient'scare today. Isaiah Vizcarra MD Please note-This report was transcribed with the assistance of voice recognition software and may contain word substitution or spelling errors. documented in this encounter Nursing Notes 01/05/2011 9:15 AM CDT >> Dalila Ramos LPN [facility] Jan 05, 2011 9:25 AM Here for consult on weakness over body and pain in hips and legs. Patient is not currently on any medications. Dalila Ramos LPN documented in this encounter Plan of Treatment Scheduled Referrals Name Type Priority Associated Diagnoses Order S chedule EMG - ELECTROMYOGRAPHY Referral Routine Muscle we akness Ordered: 01/05/2011 Hip pain documented as of this encounter Visit Diagnoses Diagnosis Muscle weakness - Primary Muscle weakness (generalized) Hip pain Pain in joint, pelvic region and thigh documented in this encounter Care Teams Housing Property Manager Relationship Specialty Start Date End Date Rosaura Ayala PA-C PCP - General 06/01/10 [address] [place] [address] documented as of this encounter
--- OUTSIDE RECORDS SUMMARY | 2022-08-16 10:44 | XMS_ITS | Clinical Summary ---
:1990 Author Organization [facility] Address [address], [place] [address] Care Team Providers Name Role Phone Rosaura Ayala PA-C Primary Care Provider Source Comments You are receiving this document as you are listed as the primary care provider,follow-up provider, or the patient has been referred to you for consultation.This is in compliance with the Medicare and Medicaid EHR Incentive Program,which states Providers who transition their patient to another setting of careor provider of care or refers their patient to another provider of care shouldprovide summarycare record for each transition of care or referral. [facility] Allergies No known active allergies Medications Medication Sig Dispensed Refills Start Date End Date Status gabapentin (AKA Take 1 Cap by 60 Cap 0 01/06/2011 Active NEURONTIN) 100 MG mouth three times capsuleIndications: Hip a day. pain, Leg weakness Additional Information Patient not taking. Reported on 06/03/2018 Active Problems No known active problems Immunizations Name Administration Dates Next Due DTP 1989 OPV, Trivalent (Orimune or tOPV) 1990 Tdap 02/22/2002 Family History Medical History Relation Name Comments Thyroid Disorder Mother Relation Name Status Comments Mother Social History Tobacco Use Types Packs/Day Years Used Date Smoking Tobacco: Never Smokeless Tobacco: Never Alcohol Use Standard Drinks/Week Comments Yes 0 (1 standard drink = 0.6 oz pure alcoho l) rare use Sex Assigned at Date Recorded Not on file Last Filed Vital Signs Vital Sign Reading Time Taken Comments Blood Pressure 102/63 06/03/2018 7:18 AM CDT Pulse 59 06/03/2018 7:18 AM CDT Temperature 36.5 ??C (97.7 ??F) 01/06/2011 9:58 AM CDT Respiratory Rate 12 01/06/2011 9:58 AM CDT Oxygen Saturation - - Inhaled Oxygen Concentration - - Weight 49.9 kg (110 lb) 01/05/2011 9:21 AM CDT Height 158.1 cm (5' 2.25) 01/05/2011 9:21 AM CDT Body Mass Index 19.96 01/05/2011 9:21 AM CDT Plan of Treatment Health Maintenance Due Date Last Done Comments Hep C Screening (Preventive 1990 Services) COVID-19 Vaccine (#1) 1990 Adult Preventive Visit 2007 Cervical Cancer Screening Due 06/02/2010 06/01/2010 Influenza (#1) 2022 Zoster/Shingles (1 of 2) 2039 IPV (Polio) Aged Out 1990 No longer eligib le based on patient's age to complete this topic HIV Screening (Preventive Completed 01/03/2011 Services) HepA Aged Out No longer eligib le based on patient's age to complete this topic Hib Aged Out No longer eligib le based on patient's age to complete this topic MCV4 Aged Out No longer eligib le based on patient's age to complete this topic Pneumococcal Aged Out No longer eligib le based on patient's age to complete this topic Insurance Payer Benefit Plan / Subscriber ID Effective Dates Phone Addre ss Type Group [facility] [id number] 2011-Presen Medicaid t Izzy Farah Personal/Family Self [id number] (Home) [phone] [place], [place] (Work) [id number] Izzy Farah Personal/Family Self 1990 [id number] [place] (Home) [facility] [phone] [place], [place] (Work) [address] Care Teams Cistern Room Operator Relationship Specialty Start Date End Date Rosaura Ayala PA-C PCP - General 06/01/10 [address] [place] [address]
--- OUTSIDE RECORDS SUMMARY | 2022-08-16 10:44 | XMS_ITS | Encounter Summary ---
:1990 Author Organization [facility] Address [address] [place] [address] Care Team Providers Name Role Phone Rosaura Ayala PA-C Primary Care Provider Reason for Visit Reason Comments PAIN, LLQ daughter elbowed mom in that area 10/30/2010 Encounter Details Date Type Department Care Team Description 11/07/2010 Office Visit [facility] Rosaura Ayala, Abd ominal pain, left lower quadrant (Primary Dx); Practice MEL Irregular menstrual bleeding [address] [facility] [address] [place] [address] [phone] Social History Tobacco Use Types Packs/Day Years Used Date Smoking Tobacco: Never Alcohol Use Standard Drinks/Week Comments Not Asked 0 (1 standard drink = 0.6 oz pure alcoho l) Sex Assigned at Date Recorded Not on file documented as of this encounter Last Filed Vital Signs Vital Sign Reading Time Taken Comments Blood Pressure 115/60 11/07/2010 3:54 PM MACHINE PULLER Pulse 62 11/07/2010 3:54 PM MACHINE PULLER Temperature 36.1 ??C (97 ??F) 11/07/2010 3:54 PM MACHINE PULLER Respiratory Rate 12 11/07/2010 3:54 PM MACHINE PULLER Oxygen Saturation - - Inhaled Oxygen Concentration - - Weight 51.3 kg (113 lb) 11/07/2010 3:54 PM MACHINE PULLER Height 157.5 cm (5' 2) 11/07/2010 3:54 PM MACHINE PULLER Body Mass Index 20.67 11/07/2010 3:54 PM MACHINE PULLER documented in this encounter Patient Instructions Patient InstructionsPeJolynn ashford LPN - 11/07/2010 3:58 PM CST Thank you for visiting the [facility]. Should you have any questions or concerns please call my office during business hours at [phone] and leave a message along with a phone number where you can be reached during the day and a member of my care team will contact you. If you need assistance after business hours you can speak with a registered nurse by calling the Careline at [phone]. In addition we provide services after hours at the [facility] at our walk-in Urgent Care. Urgent Care Clinic hours are: Mon-Fri 5:00pm-9:00pm Sunday 9:00am-5:00pm Sunday Noon-5:00 pm To schedule an appointment please call [phone]. INE PULLER documented in this encounter Progress Notes Rosaura Ayala PA-C - 11/07/2010 5:20 PM CST S: Izzy Wells is a 20 yr female who presents today with concerns of LLQ discomfort since her 3 year old daughter elbowed her in the area 8 days ago. Really only has pain when her hugs her andhis belt presses into her LLQ. Doesn't have pain without pressure to the area. Also started with a pretty heavy period and a lot of cramping yesterday. Did have one incidents of light spotting 2 days prior to this. She says it is about 5 days early for her period. LMP 10/10/2010, but her cycles are generally 31-32 days. She does admit to some urinary frequency today. No dysuria. Little bit of vaginal discharge prior tostarting her period. Still needs to get rechecked for GC/chlamydia. O: BP 115/60 Pulse 62 Temp(Src) 97 ??F (36.1 ??C) (Oral) Resp 12 Ht 5' 2 (1.575 m) Wt 113 lb(51.256 kg) LMP 11/06/2010 Vitals reviewed by me. Abd: normal bowel sounds throughout, soft, mild LLQ tenderness, no rebound or guarding. No CVA tenderness UPT: neg UA: WNL A: LLQ pain Menstrual bleeding P: 1) She will continue to monitor both symptoms. Likely just a regular period, but a bit early. If thepain doesn't resolve in the next week or two or any new sx occur, she'll let me know 2) Heat to the area as needed Rosaura Ayala PA-C 11/07/2010, 5:19 PM INE PULLER documented in this encounter Plan of Treatment Not on filedocumented as of this encounter Procedures Procedure Name Priority Date/Time Associated Diagnosis Comme nts UA MICRO IF Waiting 11/07/2010 5:00 PM Abdominal pain, left R esults for this MACHINE PULLER lower quadrant procedure are in the results section. TEST Waiting 11/07/2010 5:00 PM Abdominal pain, left Results for this (URINE) MACHINE PULLER lower quadrant procedure are in the results section. UA MICRO Waiting 11/07/2010 5:00 PM Results f or this MACHINE PULLER procedure are i n the results section. documented in this encounter Results UA MICRO (11/07/2010 5:00 PM MACHINE PULLER) [email or web address] Method Time Signature RBC'S 4-7 0 - 3 [facility] /hpf WBC'S 0 0 - 5 [facility] /hpf Epith, Occ /hpf [facility] Squamous Bact 0 [facility] Casts 0 /lpf [facility] Other Occ Amorph [facility] Phos Specimen Anatomical Collection Method Collection Time Receive d Time (Source) Location / / Volume Laterality 11/07/2010 5:00 PM 1 5:19 MACHINE PULLER PM MACHINE PULLER Rosaura Ayala PA-C LAB_1 Performing Organization Address City/State/ZIP Code Phon e Number [facility] [phone] [facility] [address] [address] (ABNORMAL) UA MICRO IF (11/07/2010 5:00 PM MACHINE PULLER) [email or web address] Method Time Signature Urine Color Yellow [facility] Urine Clarity Clear [facility] Sp Gr 1.020 1.005 - [facility] 1.03 Leuk Negative NEG [facility] Nitr Negative NEG [facility] pH 7.0 4.5 - 8.0 [facility] Prot Negative NEG mg/dl [facility] Gluc Negative NEG [facility] Ket Negative NEG [facility] Urob 0.2 0.2 - 1.0 [facility] EU/dl Bili Negative NEG [facility] Blood Sml (A) NEG [facility] Specimen Anatomical Collection Method Collection Time Receive d Time (Source) Location / / Volume Laterality 11/07/2010 5:00 PM 1 5:19 MACHINE PULLER PM MACHINE PULLER Rosaura Ayala PA-C LAB_1 Performing Organization Address [facility] Phon e Number [facility] [employer] [phone] [address] TEST (URINE) (11/07/2010 5:00 PM MACHINE PULLER) Component Value Ref Test Analysis Performed At [facility] Range Method Time Signature HCG, Urine Negative [facility] Negative = <25 mIU/ml If is suspected, suggest repeat in 48-72 hours or confirm results with a quantitative hCG test. Specimen Anatomical Collection Method Collection Time Receive d Time (Source) Location / / Volume Laterality Urine specimen 11/07/2010 5:00 PM 011 5:18 (specimen) MACHINE PULLER PM MACHINE PULLER Rosaura Ayala PA-C LAB_1 Performing Organization Address [facility] Phon e Number [facility] [phone] [address] documented in this encounter Visit Diagnoses Diagnosis Abdominal pain, left lower quadrant - Pr imary Irregular menstrual bleeding Irregular menstrual cycle documented in this encounter Care Teams Merchandising Manager Relationship Specialty Start Date End Date Rosaura Ayala PA-C PCP - General 06/01/10 [address] [place] [address] documented as of this encounter
--- OUTSIDE RECORDS SUMMARY | 2022-08-16 10:44 | XMS_ITS | Encounter Summary ---
:1990 Author Organization [facility] Address [address] [place] [address] Care Team Providers Name Role Phone Rosaura Ayala PA-C Primary Care Provider Reason for Visit Reason Comments BLADDER INFECTION Encounter Details Date Type Department Care Team Description 06/01/2010 Office Visit [facility] Rosaura Ayala, Dys uria (Primary Dx); Practice MEL Screening for Malignant Neoplasm of the Cervix; [address] [address] [facility] [place] [address] [phone] Social History Tobacco Use Types Packs/Day Years Used Date Smoking Tobacco: Never Alcohol Use Standard Drinks/Week Comments Not Asked 0 (1 standard drink = 0.6 oz pure alcoho l) Sex Assigned at Date Recorded Not on file documented as of this encounter Last Filed Vital Signs Vital Sign Reading Time Taken Comments Blood Pressure 100/50 06/01/2010 2:00 PM CDT Pulse 74 06/01/2010 2:00 PM CDT Temperature 36.9 ??C (98.4 ??F) 06/01/2010 2:00 PM CDT Respiratory Rate 12 06/01/2010 2:00 PM CDT Oxygen Saturation - - Inhaled Oxygen Concentration - - Weight 51.9 kg (114 lb 6.4 oz) 06/01/2010 2:00 PM CDT Height 157.5 cm (5' 2) 06/01/2010 2:00 PM CDT Body Mass Index 20.92 06/01/2010 2:00 PM CDT documented in this encounter Patient Instructions Patient InstructionsPeJolynn ashford LPN - 06/01/2010 2:03 PM CDT Thank you for visiting the [facility]. Should you have any questions or concerns please call my office during business hours at [phone] and leave a message along with a phone number where you can be reached during the day and a member of my care team will contact you. If you need assistance after business hours you can speak with a registered nurse by calling the Careline at [phone]. In addition we provide services after hours at the [facility] at our walk-in Urgent Care. Urgent Care Clinic hours are: Mon-Fri 5:00pm-9:00pm Sunday 9:00am-5:00pm Sunday Noon-5:00 pm To schedule an appointment please call [phone]. documented in this encounter Progress Notes Rosaura Ayala - 06/01/2010 2:32 PM CDT SUBJECTIVE: Kevin Kwan is an 19 yr female who presents with suspected urinary tract infection. Symptoms began 5 days ago and include dysuria and frequency. Yesterday she developed right lower abdominal discomfort and right low back pain. No fevers, chills, nausea, vomiting or diarrhea. The pain is still present today. She also thinks she might have BV. Vaginal discharge and odor x 1 month. Was treated for chlamydia with zithromax 3 weeks ago. [facility] Her fiance was also treated. Predisposing factors: none Hx of previous UTI???s: none Sexually active: yes, single partner, contraception - none - has been told very unlikely her fiance would be able to conceive a child due to past testicular injury. OBJECTIVE: BP 100/50 Pulse 74 Temp(Src) 98.4 ??F (36.9 ??C) (Oral) Resp 12 Ht 5' 2 (1.575 m) Wt 114 lb 6.4 oz (51.891 kg) LMP 05/01/2010 Vitals reviewed by me. General appearance: stated age Hydration: well hydrated CVA tenderness to percussion: present on the right Abdomen: flat, normal bowel sounds. Tenderness: present, mild, RLQ suprapubic Masses: none Organomegaly: none : external genitalia normal, Bartholin's glands, urethra, [place]'s glands negative, vaginal mucosa normal, cervix clear, normal sized uterus, adnexae negative vaginal discharge - copious, yellow and green Wet prep: negative Pap smear also taken. Normal pap 1.5 years ago. ASSESSMENT: UTI, ? Incompletely treated chlamydia PLAN: 1)Rx for Amoxicillin 500mg TID x 7 days. Would cover for UTI and chlamydia. She will schedule lab visit in 2 months for urine recheck of chlamdyia. At this point I don't think there is any reason to recheck her partner. 2)Encourage increased fluids, cranberry juice if tolerated, tylenol or ibuprofen for comfort. 3) If sx aren't improving in the next couple of days she will let me know. Rosaura Ayala PA-C 06/01/2010, 2:48 PM documented in this encounter Plan of Treatment Not on filedocumented as of this encounter Procedures Procedure Name Priority Date/Time Associated Diagnosis Comme nts URINE CULTURE Routine 06/01/2010 2:51 PM Results for this CDT procedure are i n the results section. VAGINAL WET PREP Waiting 06/01/2010 2:22 PM Vaginal Discharge Results for this CDT procedure are i n the results section. UA MICRO IF Waiting 06/01/2010 1:52 PM Dysuria Results f or this CDT procedure are i n the results section. UA MICRO Waiting 06/01/2010 1:52 PM Results f or this CDT procedure are i n the results section. PAP TEST, ROUTINE Routine 06/01/2010 12:00 AM Screening for Re sults for this CDT Malignant Neoplasm procedure are in of the Cervix the results section. documented in this encounter Results URINE CULTURE (06/01/2010 2:51 PM CDT) Component Value Ref Test Analysis Performed At [facility] Range Method Time Signature Specimen Urine [facility] Description Special Unspecified [facility] Requests Culture Mixed Dorothy [facility] Consisting Predominantly of Nonpathogens Report Status Final 06/03/2010 [facility] Specimen Anatomical Collection Method Collection Time Receive d Time (Source) Location / / Volume Laterality 06/01/2010 2:51 PM 0 2:52 CDT PM CDT Rosaura Ayala PA-C LAB_1 Performing Organization Address City/[facility]/ZIP Code Phon e Number dINK [phone] [facility] [address] [address] WET PREP, VAGINAL (06/01/2010 2:22 PM CDT) [facility] [employer] Method Time Signature Epithelials Many [facility] % Atrophic Epith 10 [facility] RS WBC'S Many [facility] Bacteria Few [facility] Clue Cells 0 [facility] Trichomonas 0 [facility] Yeast 0 [facility] pH 4.5 3.5 - 4.5 [facility] Specimen Anatomical Collection Method Collection Time Receive d Time (Source) Location / / Volume Laterality 06/01/2010 2:22 PM 0 2:25 CDT PM CDT Rosaura Ayala PA-C LAB_1 Performing Organization Address [facility]/ZIP Code Phon e Number dINK [phone] [facility] [address] [place] [address] UA MICRO (06/01/2010 1:52 PM CDT) [facility] gist Method Time Signature RBC'S 0-3 0 - 3 [facility] /hpf WBC'S 6-10 0 - 5 [facility] /hpf Epith, Few /hpf [facility] Squamous Bact 0 [facility] Casts 0 /lpf [facility] Other Few Amorph [facility] Urates Specimen Anatomical Collection Method Collection Time Receive d Time (Source) Location / / Volume Laterality 06/01/2010 1:52 PM 0 1:54 CDT PM CDT Rosaura Ayala PA-C LAB_1 Performing Organization Address [facility]/ZIP Code Phon e Number dINK [phone] [facility] [address] [address] (ABNORMAL) UA MICRO IF (06/01/2010 1:52 PM CDT) [facility] Method Time Signature Urine Color Yellow [facility] Urine Clarity Hazy [facility] Sp Gr 1.025 1.005 - [facility] 1.03 Leuk Lrg (A) NEG [facility] Nitr Negative NEG [facility] pH 6.0 4.5 - 8.0 [facility] Prot Negative NEG mg/dl [facility] Gluc Negative NEG [facility] Ket Tr (A) NEG [facility] Urob 0.2 0.2 - 1.0 [facility] EU/dl Bili Negative [facility]G [facility] Blood Tr (A) NEG [facility] Specimen Anatomical Collection Method Collection Time Receive d Time (Source) Location / / Volume Laterality 06/01/2010 1:52 PM 0 1:54 CDT PM CDT Rosaura Ayala PA-C LAB_1 Performing Organization Address City/State/ZIP Code Phon e Number [facility] [phone] [facility] [address] [address] PAP TEST, ROUTINE (06/01/2010 12:00 AM CDT) Component Value Ref Test Analysis Performed At [facility] Range Method Time Signature Cytology, (NOTE) [facility] Pap Compliance Field Technician Cytology Report Patient Name: KEVIN KWAN Taken: 06/01/2010 Received: 06/02/2010 Reported: 06/09/2010 Physician(s): Rosaura Ayala ?Source of Specimen Liquid routine Pap, cervical/endocervical: ?Specimen Adequacy ?Satisfactory for evaluation. ??Endocervical component present. ? Final Cytologic Interpretation/Result NEGATIVE FOR INTRAEPITHELIAL LESION OR MALIGNANCY (NILM) ? tlp/06/09/2010 Electronically Signed Out By KEMAL Stevens (ASCP) KEMAL Stevens (ASCP) ?Pap Smear History ?Date of Last Menstrual Period: ? 8/8/10 ? Specimen (Source) Anatomical Collection Method Collection Time Re ceived Time Location / / Volume Laterality 06/01/2010 06/02/2010 12:3 8 PM CDT Rosaura Ayala PA-C LAB_1 Performing Organization Address City/State/ZIP Code Phon e Number [facility] [phone] [facility] [address] [place] [address] documented in this encounter Visit Diagnoses Diagnosis Dysuria - Primary Screening for malignant neoplasm of the cervix Vaginal discharge Leukorrhea, not specified as infective documented in this encounter Care Teams Parks And Recreation Worker Relationship Specialty Start Date End Date Rosaura Ayala PA-C PCP - General 06/01/10 [address] [place] [address] documented as of this encounter
[2022-08-16] MEDS: HYDROmorphone 0.5 mg/0.5 ml inj IVP (10:50)
[2022-08-16] MEDS: KETOROLAC 15 MG/ML inj IVP (10:50)
--- NOTE | 2022-08-16 11:08 | ED_ITS ---
HPI - General Adult General Date Seen: 08/16/22 Chief complaint: Neck Injury/Pain Stated complaint: Cannot move head, neck pain Time Seen by Provider: 08/16/22 10:12 History of Present Illness HPI narrative: Patient is a 32-year-old woman who comes in complaining of severe pain in left side of her neck. She notes minor head trauma when she hit her head on the wall couple of weeks ago. She was seen here for some concussive symptoms at that time. Since then those symptoms have improved. She says for the past couple of days she has had some mild pain in the left side of her neck but last night she turned her head and she felt like there was some kind of noise, and this morning when she woke up she had severe pain, primarily in the left trapezius area, less so in the left side of her neck, and she says that she cannot rotate her neck to the right at all. She is holding her head rotated to the left. She says that she cannot turn her head to the right and cannot tip her head to the left without severe pain. As long as she holds her head still she says she feels okay. She does not have any radiating pain, denies any numbness or weakness in either arm or hand. She does not have any headache, difficulty with speech, vision, dizziness or balance. She did go to a chiropractor this morning, but she says that he touched her trapezius lightly and she had severe pain so he said that she needed to come to the ER. She did not have any kind of man ipulation today, and has not had any kind of prior manipulation. Aside from the minor head trauma a couple weeks ago she has not had any other trauma, major or minor. She did have a recent ear infection on the right which was treated with amoxicillin, those symptoms have resolved. She denies any other recent upper respiratory symptoms, has not had fevers, sore throat, difficulty swallowing or breathing. She denies significant health problems. No allergies to medications. She does not smoke, denies alcohol or drug use. Related Data Home Medications Medication Instructions Recorded Confirmed acetaminophen 500 mg tablet 500 mg PO Q6H PRN 08/08/22 08/08/22 (Tylenol Extra Strength) Previous Rx's Medication Instructions Recorded amoxicillin 500 mg tablet 500 mg PO BID 10 days #20 tabs 08/08/22 Allergies Allergy/AdvReac Type Severity Reaction Status Date / Time No Known Drug Allergies Allergy Verified 08/08/22 09:08 Review of Systems Status of ROS: Reports: 10 or more systems reviewed and unremarkable except as noted in History and below [facility] Medical History (Updated 08/16/22 @ 13:14 by Lashonda Zepeda MD) Pharyngitis Social History Smoking Status: Never smoker Do you use any of these nicotine containing products: None Second hand tobacco smoke exposure: No How often do you have a drink containing alcohol: never How often do you have six or more drinks on one occasion: Never AUDIT-C Alcohol total score: 0 Non-prescribed substance use: denies use service: No Exam Narrative: Exam Narrative: Vital signs as noted above. In general, an alert, nontoxic woman. She is sitting on the cart, head is rotated to the right. Head: Normocephalic, atraumatic. Eyes: Pupils are equal reactive. Extraocular movements are full. Conjunctivae are normal. ENT: Mucous membranes are moist. Throat is normal. TMs are normal bilaterally. Neck: Neck is normal in appearance without any swelling, erythema, rashes or edema. Trachea is nontender. Pulses equal. On the left, she has tenderness primarily over the trapezius. Less so over the paracervical muscles. I can get her to rotate to about 10? shy of midline but no further before she complains of severe pain. She is able to nod yes and no without significant difficulty. None of these maneuvers produce any neurologic complaints. Heart: Regular rate and rhythm. No murmur or rub. Lungs: Clear bilaterally. No increased work of breathing, crackles or wheezes. Abdomen: Soft and nontender. No organomegaly. Extremities: Well perfused. No edema. No calf tenderness. Pulses intact. Neurologic: Patient is alert and oriented to person and place. Speech is fluent. Face is symmetric. Strength is 5 of 5 in bilateral upper extremities. Sensation is intact to light touch. Affect: Normal. Skin: Warm and dry. Well perfused. Const: Vital Signs, click to edit/add: Vital Signs - 24 hr 08/16/22 10:02 08/16/22 13:36 Temperature 97.7 F Pulse Rate [Right Pulse Oximeter] 68 72 Respiratory Rate 18 18 Blood Pressure [Ri ght Upper Arm] 131/87 118/41 L Pulse Oximetry 99 98 Oxygen Delivery Me thod Room Air Room Air Documenting provider has reviewed patient's vital signs: yes Course Course Hospital Course: We placed an IV here and gave her 15 mg of Toradol as well as a 0.5 mg of Dilaudid initially, and then added a mg of Ativan to get her comfortable to the point that she was able to lay down. I did elect to do a CT scan of the cervical spine given that she had had recent minor trauma just to rule out the possibility of the unlikely event of a bony subluxation. I did suspect that this was likely torticollis. The CT was read by Radiology as showing normal bony alignment aside from that altered due to muscle spasm. I do not think this represents a vascular event. She clearly has symptoms that are related to movement and muscle spasm. She does not have any neurologic symptoms at all. Area of discomfort is primarily in the trapezius rather than the neck itself. We discussed that these symptoms can be seen with disc herniation, although she does not have any radicular symptoms today and I think that that is less likely. For now, I have recommended that she use a combination of ibuprofen 400 mg plus Tylenol 1000 mg 3 times daily with food for the next several days up to a week. We talked about ice and heat, consider massage. I have recommended against chiropractic for this as I think significant manipulation is probably not in her best interest. I do think with the severity of her symptoms she might benefit from a benzodiazepine at night and so I gave her a small number of Ativan to use at bedtime. She is moving her neck more freely after medication here and is now at least holding her head at midline, although she is not able to rotate freely to the left. Discussed that this can take multiple days to improve. If she were to develop radicular pain, neurologic symptoms, severe uncontrolled pain, fevers or other changes she should be seen again more urgently. Primary care follow-up if not improving in an anticipated time frame. Vital Signs Vital signs: Initial Vital Signs Temperature 97.7 F 08/16/22 10:02 Temperature Source Temporal Artery Scan 08/16/22 10:02 Pulse Rate 68 08/16/22 10:02 Respiratory Rate 18 08/16/22 10:02 Blood Pressure 131/87 08/16/22 10:02 Blood Pressure Mean 101 08/16/22 10:02 Blood Pressure Position Sitting 08/16/22 10:02 Pulse Oximetry 99 08/16/22 10:02 Oxygen Delivery Method 08/16/22 10:02 Vital Signs Temperature 97.7 F 08/16/22 10:02 Pulse Rate 68 08/16/22 10:02 Respiratory Rate 18 08/16/22 10:02 Blood Pressure 131/87 08/16/22 10:02 Pulse Oximetry 99 08/16/22 10:02 Oxygen Delivery Method 08/16/22 10:02 Temperature 97.7 F 08/16/22 10:02 Pulse Rate 72 08/16/22 13:36 Respiratory Rate 18 08/16/22 13:36 Blood Pressure 118/41 L 08/16/22 13:36 Pulse Oximetry 98 08/16/22 13:36 Oxygen Delivery Method 08/16/22 13:36 Discharge Plan Discharge Clinical Impression: Torticollis Patient Disposition: Home, Self-Care Condition: Improved Instructions: Spasmodic Torticollis (ED) Additional Instructions: Ibuprofen 400 mg plus Tylenol 1000 mg 3 times daily with food. Ativan at night as prescribed. Heat and or ice. Consider massage. Anticipate slow gradual improvement over the next several days to week. If you develop pain radiating down your arm, neurologic symptoms such as numbness or weakness in your arm or hand, severe uncontrolled pain, you should be seen again by your primary clinic or return to the ER. Prescriptions: No Action acetaminophen [Tylenol Extra Strength] 500 mg tablet 500 mg PO Q6H PRN amoxicillin 500 mg tablet 500 mg PO BID 10 Days Qty: 20 0RF Follow Up/Referrals: Yanira Duque MD [Primary Care Provider] - Stand Alone Forms: [facility] Info Instructions
[2022-08-16] MEDS: LORazepam 2 MG/ML inj 1 MG IVP (11:33)
[2022-08-16 13:36] VITALS: BP 118/41; PULSE 72; RESP 18; O2SAT 98
== END 2022-08-16 13:36 | disposition home or self-care (01) ==
PROVIDERS: Emergency Provider Emergency Medicine; PCP Family Medicine
DX: G24.3 Spasmodic torticollis (principal)
CPT/HCPCS: 72125; 96374; 96375; 99284; J1170; J1885; J2060